=== PATIENT | female | born 1975 | race Caucasian/White ===

== ENCOUNTER 2018-10-09 07:47 | Emergency (ER) | payer MEDICAID ==
[2018-10-09] MEDS: DIAZEPAM 5 MG TAB PO (08:48)
[2018-10-09] MEDS: KETOROLAC 60 MG INJ IM (08:48)
== END 2018-10-09 09:50 | disposition home or self-care (01) ==
LOC: FTE 07:47
DX: M54.2 Cervicalgia (principal); R51 Headache
CPT/HCPCS: 70450; 72125; 81025; 96372; 99285-25